=== PATIENT | female | born 1980 | race African-American/Black ===

== ENCOUNTER 2020-04-18 14:09 | Outpatient (REF) | payer BC, SELFPAY ==
[2020-04-19 03:58] LABS: HBS Num1 2.45 mIU/mL (0-7.99); ~Hepatitis B Surface Antibody NONREACTIVE (Nonreactive)
[2020-04-19 17:16] LABS: Rubella IgG Antibody 1.04 Index
[2020-04-20 18:52] LABS: TS Negative Control Passed; TS Panel A 0; TS Panel B 0; TS Positive Control Passed; TSpotTB Negative (SeeBelow)
== END 2020-04-18 14:10 | disposition home or self-care (01) ==
LOC: HO.LNP 14:09
PROVIDERS: Visit Provider Internal Medicine
DX: Z02.1 Encounter for pre-employment examination (principal)
CPT/HCPCS: 86481; 86706; 86735; 86762; 86765; 86787

== ENCOUNTER 2020-09-13 09:22 | Outpatient (REF) | payer BC, OTHER, SELFPAY ==
[2020-09-13 11:39] LABS: Alanine Aminotransferase 17 U/L (0-31); Albumin Level 4.5 g/dL (3.5-5.0); Alkaline Phosphatase 70 U/L (39-117); Anion Gap 13 (12-20); Aspartate Amino Transferase 21 U/L (5-31); Bilirubin Total 0.4 mg/dL (0.0-1.0); Blood Urea Nitrogen 12 mg/dL (9-16); Calcium 9.7 mg/dL (8.4-10.2); Carbon Dioxide 25 mmol/L (22-29); Chloride 106 mmol/L (96-108); Cholesterol 179 mg/dL; Estimated Glomerular Filt Rate > 60; Glucose Random 98 mg/dL (60-115); HDL Cholesterol 44 mg/dL; LDL Cholesterol Calculated 104 mg/dl; Potassium 4.4 mmol/L (3.3-5.1); Sodium 140 mmol/L (135-145); Total Protein 7.4 g/dL (6.5-8.0); Triglycerides 157 mg/dL
== END 2020-09-13 09:23 | disposition home or self-care (01) ==
LOC: HO.HMGCLDS 09:22
PROVIDERS: PCP Nurse Practitioner Adult Health; Visit Provider Nurse Practitioner Adult Health
DX: E78.00 Pure hypercholesterolemia, unspecified (principal)
CPT/HCPCS: 36415; 80053; 80061

== ENCOUNTER 2020-12-24 12:11 | Outpatient (REF) | payer OTHER, SELFPAY ==
--- NOTE | ~2020-12-24 | XR_ITS ---
EXAMINATION: XR CHEST CLINICAL INFORMATION: Chest pain COMPARISON: None TECHNIQUE: 2 views of the chest were obtained. FINDINGS: No significant abnormality is noted involving the heart, lungs, mediastinum, bony thorax or soft tissues. XR/XR chest 2V IMPRESSION: Unremarkable examination.
[2020-12-24 13:46] LABS: MANUAL DIFF FLAG NO
[2020-12-24 13:50] LABS: Basophils Absolute Auto 0.1 X10*3/uL (0.0-0.2); Basophils Percent Auto 0.6 % (0-2); Eosinophils Absolute Auto 0.1 X10*3/uL (0.0-0.4); Eosinophils Percent Auto 0.9 % (0-4); Hematocrit 42.5 % (37-47); Hemoglobin 13.4 g/dl (12.0-16.0); Imm Gran Abs Auto 0.05 X10*3/uL (0.00-0.03); Imm Gran Pct Auto 0.4 % (0.0-0.4); Lymphocytes Absolute Auto 2.4 X10*3/uL (1.2-4.9); Lymphocytes Percent Auto 18.4 % (20-40); Mean Corpuscular HGB Conc 31.5 g/dl (31.0-35.0); Mean Corpuscular Hemoglobin 25.1 pg (27.0-33.0); Mean Corpuscular Volume 79.6 fL (80-98); Mean Platelet Volume 12.1 fL (9.4-12.3); Monocytes Absolute Auto 0.6 X10*3/uL (0.1-1.2); Monocytes Percent Auto 4.3 % (2-11); Neutrophils Absolute Auto 9.7 X10*3/uL (2.0-8.3); Neutrophils Percent Auto 75.4 % (45-73); Platelet Count 233 X10*3/uL (160-400); Red Blood Count 5.34 X10*6/uL (4.20-5.50); Red Cell Distribution Width 13.7 % (11.0-16.0); White Blood Count 12.9 X10*3/uL (4.8-10.8)
[2020-12-24 14:05] LABS: D Dimer < 200 NG/ML
[2020-12-24 14:19] LABS: Alanine Aminotransferase 22 U/L (0-31); Albumin Level 4.5 g/dL (3.5-5.0); Alkaline Phosphatase 70 U/L (39-117); Anion Gap 14 (12-20); Aspartate Amino Transferase 20 U/L (5-31); Bilirubin Total 0.3 mg/dL (0.0-1.0); Blood Urea Nitrogen 11 mg/dL (9-16); Calcium 9.5 mg/dL (8.4-10.2); Carbon Dioxide 25 mmol/L (22-29); Chloride 104 mmol/L (96-108); Estimated Glomerular Filt Rate > 60; Glucose Random 86 mg/dL (60-115); Potassium 4.3 mmol/L (3.3-5.1); Sodium 139 mmol/L (135-145); Total Protein 7.5 g/dL (6.5-8.0)
== END 2020-12-24 12:12 | disposition home or self-care (01) ==
LOC: HO.HMGCX 12:11
PROVIDERS: Visit Provider Nurse Practitioner Family
DX: R07.89 Other chest pain (principal)
CPT/HCPCS: 36415; 71046; 80053; 85025; 85379

== ENCOUNTER 2021-02-04 16:42 | Outpatient (REF) | payer OTHER, SELFPAY ==
[2021-02-04 18:13] LABS: Influenza A PCR NEGATIVE (Negative); Influenza B PCR NEGATIVE (Negative); Resp Syncy Virus RNA Qual PCR NEGATIVE (Negative); SARS COV2 PCR INHOUSE NEGATIVE (Negative)
== END 2021-02-04 16:43 | disposition home or self-care (01) ==
LOC: HO.LNP 16:42
PROVIDERS: Visit Provider Nurse Practitioner Family
DX: Z20.822 Contact with and (suspected) exposure to COVID-19 (principal)
CPT/HCPCS: 0241U

== ENCOUNTER 2021-07-04 14:16 | Outpatient (REF) | payer BC, OTHER, SELFPAY ==
[2021-07-04 16:53] LABS: Blood Urea Nitrogen 13 mg/dL (9-16); Estimated Glomerular Filt Rate > 60
== END 2021-07-04 14:17 | disposition home or self-care (01) ==
LOC: HO.HMGCLDS 14:16
PROVIDERS: Visit Provider Psychiatry & Neurology Neurology
DX: G93.2 Benign intracranial hypertension (principal)
CPT/HCPCS: 36415; 82565; 84520

== ENCOUNTER 2021-07-16 19:01 | Outpatient (REF) | payer BC, OTHER, SELFPAY ==
--- NOTE | ~2021-07-16 | MR_ITS ---
EXAMINATION: MR BRAIN WITHOUT AND WITH CONTRAST CLINICAL INFORMATION: 41-year-old with idiopathic intracranial hypertension. COMPARISON: None TECHNIQUE: Multiplanar, multisequence MRI of the brain was obtained before and after the intravenous administration of 10 mL Gadavist. FINDINGS: BRAIN VOLUME: Within normal limits. STRUCTURAL: Partially empty sella noted. No sphenoid wing encephaloceles are identified. No particularly prominent arachnoid pits are seen. No tonsillar ectopia at the foramen magnum. BRAIN AND MENINGES: DWI sequence demonstrates no restricted diffusion. Specifically there is no evidence for acute or subacute cerebral ischemia. There is a 7 mm nonspecific ovoid zone of FLAIR/T2 signal hyperintensity in the mesial right temporal lobe subcortical white matter adjacent to the tip of the temporal horn of the right lateral ventricle with no abnormal enhancement, which is slightly T1 hypointense. There is a 2 mm focus of nonspecific T2 hyperintensity in the left elena with no abnormal enhancement. Remainder of the brain is normal in morphology and signal intensity. There is no abnormal leptomeningeal enhancement. Specifically, no pachymeningeal enhancement/thickening is seen. No intracranial mass lesions, abnormal enhancement, extra-axial fluid collection, space-occupying process or mass effect is identified. Gradient refocused imaging demonstrates no evidence for hemosiderin staining or abnormal mineral deposition. VENTRICLES AND SUBARACHNOID SPACES: The ventricular system and subarachnoid spaces are within normal limits without hydrocephalus. ORBITAL STRUCTURES: CSF fluid signal in the optic nerve sheaths is noted bilaterally but not abnormally increased in volume. No flattening of the posterior scleral margins or protrusions of the optic nerves discs within the limitations of the study. VASCULAR: Signal voids are noted in the visualized major intracranial vessels. OSSEOUS STRUCTURES, SINUSES/MASTOIDS, EXTRACRANIAL SOFT TISSUES: Unremarkable. MR/MR head/brain wo/w con IMPRESSION: 1. No convincing evidence for idiopathic intracranial hypertension. Incidental partially empty sella noted. 2. Small nonspecific T2 hyperintense lesion in the mesial right anterior temporal lobe predominately within the subcortical and juxtacortical white matter and a small nonspecific T2 hyperintense lesion in the left elena with no abnormal enhancement. Etiology unclear. Followup as per clinical indications.
== END 2021-07-16 19:02 | disposition home or self-care (01) ==
LOC: HO.MRI 19:01
PROVIDERS: Visit Provider Psychiatry & Neurology Neurology
DX: G93.2 Benign intracranial hypertension (principal)
CPT/HCPCS: 70553; A9585

== ENCOUNTER 2021-08-04 08:44 | Outpatient (REF) | payer BC, SELFPAY ==
[2021-08-04 09:47] LABS: Binax Internal Control QC Valid; Binax Now Covid-19 Ag Negative (Negative); Binax Performed by: HO.TORG
== END 2021-08-04 08:45 | disposition home or self-care (01) ==
LOC: HO.HMGCLDS 08:44
PROVIDERS: PCP Nurse Practitioner Adult Health; Visit Provider Nurse Practitioner Family
DX: Z13.89 Encounter for screening for other disorder (principal)

== ENCOUNTER 2021-08-15 09:37 | Day surgery (SDC) | payer BC, OTHER, SELFPAY ==
[2021-08-15] VITALS (7 sets, daily range): BP systolic 125–144; BP diastolic 70–81; PULSE 64–88; RESP 16; TEMP 36.8–36.9; O2SAT 95–98
--- NOTE | ~2021-08-15 | FL_ITS ---
EXAMINATION: XR LUMBAR PUNCTURE CLINICAL INFORMATION: Idiopathic intracranial hypertension. COMPARISON: None. TECHNIQUE: Following explaining fluoroscopy-guided lumbar puncture procedure, benefits and risks, a written consent was obtained. Patient was placed prone on fluoroscopy table and low back area was cleaned and draped in the usual sterile manner. 1% lidocaine was injected at the skin overlying the L4-L5 disc level. A 22-gauge spinal needle was then advanced intrathecally at the L4-L5 disc level. After removing the stylet and observing CSF fluid, patient was quickly placed in the left lateral decubitus view and opening CSF pressure was obtained. Subsequently, fluid was collected in 4 test tubes. The connecting cannula was removed and stylet was reintroduced into the needle and the entire needle was withdrawn. Complete hemostasis was achieved at the puncture site with sterile Band-Aid applied postprocedure. Patient tolerated the procedure extremely well. FINDINGS: On visualized images of lumbar spine, there is maintained lumbar vertebral heights and alignment and the disc heights are normal. The opening CSF pressure measured 26 cm of water at the L4-L5 disc level. 14 mL of CSF was collected in 4 test tubes. Initially the fluid was hemorrhagic and there was pinkish CSF fluid in initial tube but subsequently clear. FLUOROSCOPY TIME: 1.4 minutes. DOSE AREA PRODUCT: 16.298 uGy-m2 (microgray-meter squared). FL/FL guided lumbar puncture LP IMPRESSION: Successful ultrasound-guided lumbar puncture performed. The CSF initially was hemorrhagic, likely traumatic. This cleared on subsequent collection of CSF. There was elevated CSF pressures.
[2021-08-15 10:00] LABS: MANUAL DIFF FLAG NO
[2021-08-15 10:01] LABS: Basophils Percent Auto 0.4 % (0-2); Eosinophils Absolute Auto 0.2 X10*3/uL (0.0-0.4); Eosinophils Percent Auto 1.5 % (0-4); Hematocrit 41.9 % (37.0-47.0); Hemoglobin 13.2 g/dl (12.0-16.0); Imm Gran Abs Auto 0.04 X10*3/uL (0.00-0.03); Imm Gran Pct Auto 0.4 % (0.0-0.4); Lymphocytes Percent Auto 18.6 % (20-40); Mean Corpuscular HGB Conc 31.5 g/dl (31.0-35.0); Mean Corpuscular Hemoglobin 25.3 pg (27.0-33.0); Mean Corpuscular Volume 80.3 fL (80.0-98.0); Mean Platelet Volume 11.2 fL (9.4-12.3); Monocytes Absolute Auto 0.5 X10*3/uL (0.1-1.2); Monocytes Percent Auto 5.1 % (2-11); Neutrophils Absolute Auto 7.8 x10*3/uL (2.0-8.3); Platelet Count 203 X10*3/uL (160-400); Red Blood Count 5.22 X10*6/uL (4.20-5.50); Red Cell Distribution Width 13.6 % (11.0-16.0); White Blood Count 10.6 X10*3/uL (4.8-10.8)
[2021-08-15 10:07] LABS: INTERNATIONAL NORM RATIO 0.9 (0.9-1.1); Prothrombin Time 10.6 SEC (9.9-13.0)
[2021-08-15 10:10] LABS: Partial Thromboplastin Time 34.4 SEC (24.1-38.0)
[2021-08-15 10:36] LABS: UPreg QC Valid YES; Urine Pregnancy NEGATIVE (NEGATIVE)
[2021-08-15 12:56] LABS: CSF Appearance Clear, Colorless; CSF Tube # 3
[2021-08-15 13:07] LABS: Glucose CSF 66 mg/dL; Total Protein CSF 53.4 mg/dL (15-45)
[2021-08-15 13:16] LABS: CSF Monos 14 %; Lymphocytes CSF 75 %; Neutrophils CSF 11 %
[2021-08-15 13:17] LABS: Appearance CSF CLEAR; Color CSF COLORLESS; Red Blood Cell CSF 126 MM*3; White Blood Cell CSF 2 MM*3
[2021-08-15 13:20] LABS: CSF Tube # 1
== END 2021-08-15 15:35 | disposition home or self-care (01) ==
PROVIDERS: Psychiatry & Neurology Neurology; Visit Provider Radiology Diagnostic Radiology
PROC: 009U3ZZ Drainage of Spinal Canal, Percutaneous Approach (ICD-10-PCS; CPT 62270; principal; 2021-08-15 11:00)
DX: G93.2 Benign intracranial hypertension (principal); F41.8 Other specified anxiety disorders; G43.909 Migraine, unspecified, not intractable, without status migrainosus; R25.1 Tremor, unspecified; E66.9 Obesity, unspecified; Z79.899 Other long term (current) drug therapy
CPT/HCPCS: 36415; 62328; 81025; 82945; 84157; 85025; 85610; 85730; 87015; 87070; 87205; 89051

== ENCOUNTER 2021-11-25 14:11 | Outpatient (REF) | payer BC, SELFPAY ==
[2021-11-26 13:56] LABS: Lyme Abs Screen <0.90 index
[2021-11-27 11:37] LABS: IgA 196 mg/dL (47-310); IgG 943 mg/dL (600-1640); IgM 53 mg/dL (50-300)
== END 2021-11-25 14:12 | disposition home or self-care (01) ==
LOC: HO.HMGCLDS 14:11
PROVIDERS: PCP Nurse Practitioner Adult Health; Visit Provider Psychiatry & Neurology Neurology
DX: G93.2 Benign intracranial hypertension (principal)
CPT/HCPCS: 36415; 82784; 86334; 86617; 86618

== ENCOUNTER 2022-06-09 07:52 | Outpatient (REF) | payer BC, OTHER, SELFPAY ==
[2022-06-09 11:31] LABS: MANUAL DIFF FLAG NO
[2022-06-09 11:37] LABS: Appearance Urine Clear; Color Urine Yellow; Glucose Urine UA Negative (Negative); Leukocyte Esterase Urine Negative (Negative); Nitrite Urine Negative (Negative); PH 6.5 (5.0-9.0); Urine Blood Negative (Negative); Urine Ketones Negative (Negative); Urine Protein Negative (Neg-Trace)
[2022-06-09 11:55] LABS: Basophils Absolute Auto 0.1 X10*3/uL (0.0-0.2); Basophils Percent Auto 0.7 % (0-2); Eosinophils Absolute Auto 0.1 X10*3/uL (0.0-0.4); Eosinophils Percent Auto 1.5 % (0-4); Hematocrit 40.6 % (37.0-47.0); Hemoglobin 12.6 g/dl (12.0-16.0); Imm Gran Abs Auto 0.03 X10*3/uL (0.00-0.03); Imm Gran Pct Auto 0.3 % (0.0-0.4); Lymphocytes Absolute Auto 1.9 X10*3/uL (1.2-4.9); Lymphocytes Percent Auto 20.2 % (20-40); Mean Corpuscular Volume 80.4 fL (80.0-98.0); Mean Platelet Volume 11.8 fL (9.4-12.3); Monocytes Absolute Auto 0.4 X10*3/uL (0.1-1.2); Monocytes Percent Auto 4.5 % (2-11); Neutrophils Absolute Auto 6.7 x10*3/uL (2.0-8.3); Neutrophils Percent Auto 72.8 % (45-73); Platelet Count 220 X10*3/uL (160-400); Red Blood Count 5.05 X10*6/uL (4.20-5.50); Red Cell Distribution Width 13.9 % (11.0-16.0); White Blood Count 9.2 X10*3/uL (4.8-10.8)
[2022-06-09 12:37] LABS: Alanine Aminotransferase 18 U/L (0-31); Albumin Level 4.1 g/dL (3.5-5.0); Alkaline Phosphatase 59 U/L (39-117); Anion Gap 13 (12-20); Aspartate Amino Transferase 22 U/L (5-31); Bilirubin Total 0.3 mg/dL (0.0-1.0); Blood Urea Nitrogen 14 mg/dL (9-16); Calcium 8.9 mg/dL (8.4-10.2); Carbon Dioxide 23 mmol/L (22-29); Chloride 108 mmol/L (96-108); Cholesterol 207 mg/dL; Estimated Glomerular Filt Rate > 60; Glucose Random 92 mg/dL (60-115); HDL Cholesterol 44 mg/dL; LDL Cholesterol Calculated 115 mg/dl; Potassium 4.3 mmol/L (3.3-5.1); Sodium 140 mmol/L (135-145); Total Protein 6.6 g/dL (6.5-8.0); Triglycerides 243 mg/dL
[2022-06-10 05:25] LABS: ~HepC Num1 0.07 S/CO (0.00-0.79); ~Hepatitis C Antibody Nonreactive (Nonreactive)
== END 2022-06-09 07:53 | disposition home or self-care (01) ==
LOC: HO.HMGCLDS 07:52
PROVIDERS: PCP Nurse Practitioner Primary Care; Visit Provider Nurse Practitioner Primary Care
DX: Z00.00 Encounter for general adult medical examination without abnormal findings (principal); E78.2 Mixed hyperlipidemia; Z11.59 Encounter for screening for other viral diseases
CPT/HCPCS: 36415; 80053; 80061; 81003; 85025; 86803

== ENCOUNTER 2022-12-01 11:13 | Outpatient (AMB) | payer BC, OTHER, SELFPAY ==
--- OUTSIDE RECORDS SUMMARY | 2022-12-01 11:14 | XMS_ITS | Patient Health Record ---
Author Name Unknown Organization [facility] Address [address] [place] [address] Care Team Providers Care Mud Tank Operator Name Role Phone TOM MCCORMICK Primary Care Provider Tom Mccormick Unavailable [phone] AMGALIE RUBIO Unavailable [phone] PARVIN GUNTER Unavailable [phone] ALLERGIES Allergen (clinical drug ingredient) Drug/Non Drug Allergy documented on EMR Reaction Allergy Type Onset Date Status Shellfish (FN) Shellfish (uncoded) Unknown Allergy Active RESULTS Component Value Reference Range Notes CC PRIMARY Reviewed date:06/11/2022 01:34:48 PM Interpretation: Performing Lab: Notes/Report: REASON FOR REFERRAL Reason PT leg gluteal pain/ soreness. will get xray. please evaluate and treat Diagnosis 1 Left leg pain (M79.6 05) Referral Organization [facility] Referring Provider First Name PARVIN Referring Provider Last Name LYRIC Referring Provider Speciality Nurse Prac titioner Referred Provider Specialty Physical The rapist General Notes Nelia Astudillo 10:07:33 AM > printed for patient she said she will bring referral next to her job Referral Priority Routine MEDICATIONS Medication SIG (Take, Route, Frequency, Duration) Notes Start Date End Date Status Multivitamin Adult - Orally Active Vitamin D 2000 UNIT 1 tablet Orally Once a day Active Vitamin C 500 MG as directed Orally Active Garlic - as directed Orally A ctive Topamax 50 MG 1 tablet Orally twice a day Active Simvastatin 20 MG TAKE ONE TABLET IN THE EVENING BY MOUTH ONCE A DAY FOR 90 DAYS for 90 Active Biotin 10 MG 1 tablet Orally Once a day for 30 day(s) Active Echinacea 400 MG as directed Orally Active Miracle-D 24 Hour DAILY Ac tive LORazepam 0.5 MG 1 tablet as needed Oral once daily for 30 days TAKE ONE TABLET EVERY DAY NECESSARY 03/29/2009 Not-Taking Vitamin B Complex - as directed Orally Active Famotidine 40 MG 1 tablet Orally Once a day for 90 days 09/19/2015 Not-Taking CoQ-10 50 MG 1 capsule with a meal Orally Once a day Not-Taking Loratadine 10 MG 1 tablet Orally Once a day Not-Taking Apple Cider Vinegar 500 MG Orally Not-Taking ProAir HFA 108 (90 Base) MCG/ACT 1-2 puffs Inhalation every 4-6 hrs PRN for 30 days INHALE 1 TO 2 PUFFS EVERY 4 TO 6 HOURS NEEDED. 01/19/2012 Not-Taking SUMAtriptan Succinate 100 MG TAKE AT ONSET OF HEADACHE MAY REPEAT IN 2 HOURS NO MORE THAN 2 TABLETS IN 24 HOURS for 30 Active Ashwagandha 500 MG as directed Orally Not-Taking LORazepam 0.5 MG 1 tablet Orally PRN for anxiety for 30 days PRN 03/24/2022 Active Sertraline HCl 50 MG 1 1/2 tablet Orally Once a day Active diphenhydrAMINE HCl 50 MG as directed Orally every 6 hrs prn for 30 days 09/19/2015 Not-Taking Albuterol Sulfate 108 (90 Base) MCG/ACT 2 PUFFS Inhalation every 4-6 hrs for 30 days PRN 12/25/2011 Active traZODone HCl 100 MG 1 to 1 1/2 tablet at bedtime Orally at bedtime for 90 days 09/19/2015 Not-Taking Fexofenadine HCl 180 MG 1 tablet as needed Orally Once a day for 90 days 09/19/2015 Not-Taking EpiPen 2-David 0.3 MG/0.3ML use one pen for anaphylactic reaction Injection once, may repeat in 10 min if needed for 30 days USE DIRECTED AND CALL 911 FOR ANAPHYLAXIS REACTION 01/19/2012 Active Cranberry 425 MG Orally Act staci Probiotic - Orally Active SOCIAL HISTORY Tobacco Use: Social History Observation Description Date Details (start date - stop date) Former Smoker NA - NA Sex Assigned At : Social History Observation Description Sex Assigned At Unknown Tobacco Use/Smoking Question Answer Notes Are you a former smoker How long has it been since you last smoked? 1-5 years Additional Findings: Tobacco Non-User Current no n-smoker Alcohol Screen (Audit-C) Question Answer Notes Did you have a drink contain ing alcohol in the past year? Yes How often did you have a dri nk containing alcohol in the past year? Monthly or less (1 point) How many drinks did you have on a typical day when you were drinking in the past year? 1 or 2 drinks (0 point) How often did you have 6 or more drinks on one occasion in the past year? Less than monthly (1 point) Points 2 Tobacco use other than smoking: Question Answer Notes Are you an other tobacco user? No PROBLEMS Problem Type ICD Code Onset Dates Problem Status W/U Status Risk SNOMED Code Notes Problem Mixed hyperlipidemia (E78.2) Active confirmed Mixed hyperlipidemia (673375107) Problem Anxiety disorder, unspecified (F41.9) Active confirmed Anxiety disorde r (000524482) amily stressors continue. continue sertraline, advised couceling. Problem Encounter for general adult medical examination without abnormal findings (Z00.00) Active confirmed Adult health examination (623029235) Problem Asthma (J45.909) Active confirmed 28073 7001 mild intermittent, no recent flair. continue to use otc antihistamine to help nasal sx. stressed need to have covid vaccine at the pharmacy. Problem Seasonal allergies (J30.2) Active confirmed [id number] Problem Environmental allergies (Z91.09) Active confirmed Environmental allergy (076272133) seafood allergies Has not needed epipen but needs a new rx as her's Problem Migraine (G43.909) Active confirmed Migraine (28094112) follows with Dr Silverman Problem Obesity (BMI 30-39.9) (E66.9) Active confirmed [id number] Problem Pseudotumor cerebri (G93.2) Active confirmed 40167021 continues to avoid neurology follow up. stressed need to follow up and to call for appointment Problem Pure hypercholesterol emia (E78.00) 1904 Active confirmed [id number] due for fasting lab- order given . is taking med daily Continue to work on improving diet Problem Hypercholesterol emia (E78.00) Active confirmed Hypercholester olem ia (61639528) Problem Amenorrhea (N91.2) Active confirmed Amenorrhea (15522242) VITAL SIGNS Heart Rate 90 /min 06/12/2022 Temperature 98.2 degrees Fahrenheit 06/12/2022 Oximetry 96 % 06/12/2022 Blood pressure diastolic 76 mm Hg 06/12/2022 Height 62.9920 in 06/12/2022 Blood pressure systolic 138 mm Hg 06/12/2022 Weight 197 lbs 06/12/2022 BMI 34.90 kg/m2 06/12/2022 PLAN OF TREATMENT Pending Test Test Name Order Date MAMMOGRAM, SCREENING 02/03/2018 MAMMOGRAM, SCREENING 08/25/2018 MAMMOGRAM, SCREENING 01/19/2019 MAMMOGRAM, SCREENING 03/13/2022 MAMMOGRAM, SCREENING 09/05/2020 CBC WITH AUTO DIFF 03/13/2022 COMPREHENSIVE METABOLIC PANEL 03/13/2022 HEPATITIS C VIRUS SCREEN 03/13/2022 LIPID PROFILE 03/13/2022 URINALYSIS 03/13/2022 xray hip left 06/12/2022 LIPID PROFILE 01/19/2019 Future Test Test Name Order Date COMPREHENSIVE METABOLIC PANEL 01/19/2019 Insurance Providers Payer Name Payer Address Payer Phone Subscriber Number Group Number Insured Name Patient Relationship to Insured Coverage Start Date Coverage End Date [employer] and [facility] [address] [place] [address] [phone] [id number] Yadira Yoo Self - patient is the insured [facility] [employer] Plan, [place] [address] [address] [place] [address] [id number] Yadira Yoo Self - patient is the insured MEDICAL (GENERAL) HISTORY Medical History History ICD Code , History of migraine headac hes , Obstructive Sleep Apnea , Snoring (Symptom) , Urinary Tract Infection Surgical History Surgery Date(Month/Year) Tonsillectomy 09/06/2015
--- NOTE | 2022-12-04 17:07 | MHC.OFFWIV ---
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 Patient has been having sniffles and running nose since yesterday. Minimal fatigue Physical Exam HEENT Head: Yes normal to inspection Eyes General: appearance normal, both eyes and all related structures Neck Neck: Yes normal visual inspection Resp Effort & Inspection: normal respiratory effort Assessment & Plan Assessment & Plan (1) Upper respiratory tract infection: Code(s): J06.9 - Acute upper respiratory infection, unspecified Qualifiers: URI type: unspecified viral URI Qualified Code(s): J06.9 - Acute upper respiratory infection, unspecified Plan: COVID testing was requested. It was negative. No antibiotics needed. Patient was reassured Orders: Orders BinaxNOW Covid-19 Ag 12/01/22 J06.9 - Acute upper respiratory infection, unspecified Coding Level of Care Code Est Pt Level 3 (65299) Diagnoses Viral upper respiratory tract infection J06.9 URI type: unspecified viral URI
== END 2022-12-01 13:01 | disposition home or self-care (01) ==
PROVIDERS: PCP Nurse Practitioner Primary Care; Visit Provider Internal Medicine
DX: J06.9 Acute upper respiratory infection, unspecified (principal)
CPT/HCPCS: 99213

== ENCOUNTER 2022-12-01 11:59 | Outpatient (REF) | payer BC, OTHER, SELFPAY ==
[2022-12-01 12:19] LABS: Binax Now Covid-19 Ag Negative (Negative); Binax Performed by: PAULP
[2022-12-01 12:20] LABS: Binax Internal Control QC Valid
== END 2022-12-01 12:00 | disposition home or self-care (01) ==
LOC: HO.HMGCLDS 11:59
PROVIDERS: Visit Provider Internal Medicine
DX: J06.9 Acute upper respiratory infection, unspecified (principal); Z20.822 Contact with and (suspected) exposure to COVID-19
CPT/HCPCS: 87811; C9803

== ENCOUNTER 2023-01-12 07:23 | Outpatient (AMB) | payer BC, SELFPAY ==
--- NOTE | 2023-01-12 07:07 | MHC.PC.OV ---
Intake Visit Reasons: Anxiety follow-up Allergies shellfish derived Allergy (Verified 01/12/23 07:36) Facial Swelling Medication List - Last Reconciled 01/12/23 by JAYASHREE McphersonP- albuterol sulfate 90 mcg/actuation (ProAir HFA) inhalation ascorbate calcium (vitamin C) 500 mg PO DAILY azithromycin 250 mg PO ONCE 5 days biotin 2,500 mcg PO DAILY cetirizine 10 mg PO DAILY PRN 90 days cranberry 1,000 mg PO DAILY cyclobenzaprine 10 mg PO BEDTIME PRN 10 days diphenhydramine HCl (Benadryl) 50 mg PO BEDTIME echinacea 500 mg PO DAILY ferrous sulfate (Georgi-Time) 325 mg PO Q OTHER DAY fexofenadine (Miracle Allergy) 180 mg PO DAILY garlic 500 mg PO DAILY lactobacillus combo no.11 (Probiotic) 1 cap PO DAILY lorazepam 0.5 mg PO DAILY PRN multivitamin 1 tab PO DAILY prednisone 50 mg PO DAILY 5 days sertraline 150 mg PO DAILY simvastatin 20 mg PO QPM topiramate 25 mg PO BID HPI Anxiety follow-up HPI Details Anxiety/depression: Pt is currently taking sertraline 150mg. She reports doing well on this med. Denies any SI and HI. Pt is requesting a refill of lorazepam 0.5mg, will send. Educated pt on risk of addiction, this is not a long-term med. Pt understands that they can not drive while taking this med, share this med, and to only take as prescribed. Review of Systems Const Reports as per HPI Physical exam (Primary Care) Const General: cooperative Orientation/consciousness: patient oriented x3 Neuro General: patient oriented x3 Psych Appearance: grossly normal Mental Status: mental status grossly normal Speech and movement: Clear speech present Affect: normal affect Attitude: cooperative Thought process: Normal thought process present Thought content: Normal thought content present Insight: Good insight present (Psych) Judgement: Good judgement present (Psych) Telehealth Telehealth Location of provider rendering services: practice address Location of patient: address on file Patient Identification confirmed using: Name, : Yes Telehealth method: video Patient verbally consented to treatment: Yes Patient verbally consented to billing insurance company: Yes Patient informed of any privacy concerns related to visit: Yes Minutes spent on Phone/Video with Pt.: 10 Assessment and Plan Assessment & Plan (1) Anxiety and depression: Code(s): F41.9 - Anxiety disorder, unspecified; F32.A - Depression, unspecified Plan: Sertraline and lorazepam refilled Plan The patient agreed to the use of a medical review specialist for this encounter. Scribed for Michael Pantoja [facility]- by Ninoska Navarrete medical review specialist, on 01/12/2023 at 07:10 EST Orders: Orders Complete Blood Count Auto Diff Today F32.A - Depression, unspecified, F41.9 - Anxiety disorder, unspecified UA CC w/rflx Micro + Cult Today F32.A - Depression, unspecified, F41.9 - Anxiety disorder, unspecified Lipid Panel Today F32.A - Depression, unspecified, F41.9 - Anxiety disorder, unspecified Comprehensive [place]. Panel Fast Today F32.A - Depression, unspecified, F41.9 - Anxiety disorder, unspecified TSH reflex Free T4 Today F32.A - Depression, unspecified, F41.9 - Anxiety disorder, unspecified Medications: Changed From lorazepam 0.5 mg PO DAILY PRN To lorazepam 0.5 mg PO DAILY 30 days PRN 30 tabs 0RF anxiety From sertraline 150 mg PO DAILY To sertraline 150 mg (1.5 x 100 mg) PO DAILY 90 days 135 tabs 1RF Coding Level of Care Code Tele Est Pt Level 3 (91568) Diagnoses Anxiety and depression F41.9; F32.A
== END 2023-01-12 12:28 | disposition home or self-care (01) ==
PROVIDERS: PCP Nurse Practitioner Primary Care; Visit Provider Nurse Practitioner Family
DX: F41.9 Anxiety disorder, unspecified (principal); F32.A Depression, unspecified
CPT/HCPCS: 99213

== ENCOUNTER 2023-01-29 15:50 | Outpatient (AMB) | payer BC, SELFPAY ==
[2023-01-29 16:02] VITALS: BP 140/90; PULSE 84; TEMP 36.8; O2SAT 97; BMI 35.8
--- NOTE | 2023-01-29 16:02 | AM.OFFWIN_ITS ---
Intake Vital Signs 01/29/23 16:02 Height 5 ft 4 in Weight 208 lb 6 oz BMI 35.8 BP 140/90 H Blood Pressure Location Rt brachial Position Sitting Pulse 84 Pulse Source Pulse Oximeter Temp 98.2 F Temp Source Oral Pulse Oximetry (%) 97 Oxygen Delivery Method Room Air Intake Visit Reasons: sore throat, body aches Intake Note: pt is here for c/o sore throat, body aches Patient Tobacco Use Status: Former Tobacco user Allergies shellfish derived Allergy (Verified 01/29/23 16:02) Facial Swelling Do you need a note to return to daycare/school/sports/work: Yes HPI HPI Comments History of Present Illness Details This is a 42-year-old who presents to the office today for sick visit. Patient complaining of sinus pressure, sinus congestion, rhinorrhea, low-grade fevers and chills, sore throat, and bilateral otalgia x3 days. 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 [facility] Medical History (Updated 01/12/23 @ 07:49 by ANTWAN Mcpherson-LEILA) Idiopathic intracranial hypertension Social History Patient Tobacco Use Status: Former Tobacco user Review of Systems Const All systems reviewed & are unremarkable except as noted in HPI and below Reports no additional complaints Eyes Reports no additional complaints ENT Reports no additional complaints Card Reports no additional complaints Resp Reports no additional complaints GI Reports no additional complaints Reports no additional complaints Musc Reports no additional complaints Skin/Breast Reports system reviewed and no additional complaints, except as documented Neuro Reports no additional complaints Psych Reports no additional complaints Endo Reports no additional complaints Von/Lymph Reports no additional complaints Aller/Immun Reports no additional complaints Physical Exam Vital Signs: BMI result Body Mass Index 35.8 Const Other: Vital signs reviewed. Constitutional: Non-toxic appearing. No acute distress. Well-developed and well-nourished. HEENT: Normocephalic and atraumatic. Mild erythema of bilateral external auditory canals, no evidence of acute otitis media over acute otitis externa. Moist mucous membranes. Mild posterior pharyngeal erythema but no exudates. Skin: Warm and dry. No rashes or lesions noted. Neck: Full and painless range of motion. No cervical lymphadenopathy. Cardio: Regular rate and rhythm. No murmurs, gallops, or rubs. No lower extremity edema. No JVD. Pulmonary: No respiratory distress. No accessory muscle usage. Clear to auscultation bilaterally without wheezing, crackles, or rhonchi. Gastrointestinal: Soft, nontender, and nondistended in all 4 quadrants. Normoactive bowel sounds in all 4 quadrants. Genitourinary: No CVA tenderness. Musculoskeletal: Normal range of motion in joints throughout the body. No deformity or other signs of injury. Neuro: Alert and oriented x4. Cranial nerves 2-12 grossly intact. No focal deficits appreciated. Psych: Normal mood and affect. Assessment & Plan Assessment & Plan (1) Acute rhinosinusitis: Code(s): J01.90 - Acute sinusitis, unspecified Plan This is a 42-year-old female presenting to the office complaining of viral URI symptoms. Patient's history and physical most consistent with a viral upper respiratory tract infection. I explained to the patient that antibiotic therapy is likely not necessary as this is likely self-limiting illness. However, patient is requesting antibiotic therapy sinus infection. I explained the risks of antibiotic therapy including increased risk of resistance in the future as well as uncomfortable side effects such as GI upset, nausea/vomiting/diarrhea, etc. Patient understands the risks but would like to be treated with antibiotics for a sinus infection. Sent a prescription for p.o. amoxicillin/clavulanate 875-125 mg twice daily x7 days, I have encouraged patient to give her symptoms a little bit more time to improve prior to initiation of antibiotic therapy. Rapid strep test is negative. COVID/RSV/flu sent. Patient's vital signs are stable, physical exam is otherwise benign, and patient is overall nontoxic appearing. Recommended symptomatic management including rest, increased fluids, advil/tylenol for pain/fever, salt water gargles, and over the counter throat lozenges/decongestants. Patient advised to follow up here or go to the emergency room for worsening/persistent symptoms. Patient verbalizes understanding and is in agreement the plan. Orders: Orders SARS-CoV2/FLU/RSV Today R09.89 - Other specified symptoms and signs involving the circulatory and respiratory systems Medications: New amoxicillin-pot clavulanate 875-125 mg 1 tab PO BID 14 tabs 0RF Coding Level of Care Code Est Pt Level 3 (67263) Diagnoses Acute rhinosinusitis J01.90
== END 2023-01-29 16:23 | disposition home or self-care (01) ==
PROVIDERS: PCP Nurse Practitioner Family; Visit Provider Physician Assistant Medical
DX: J01.90 Acute sinusitis, unspecified (principal)
CPT/HCPCS: 99213

== ENCOUNTER 2023-01-29 16:25 | Outpatient (REF) | payer BC, SELFPAY ==
[2023-01-30 13:42] LABS: Influenza A PCR NEGATIVE (Negative); Influenza B PCR NEGATIVE (Negative); Resp Syncy Virus RNA Qual PCR NEGATIVE (Negative); SARS COV2 PCR INHOUSE POSITIVE (Negative)
== END 2023-01-29 16:26 | disposition home or self-care (01) ==
LOC: HO.LAB 16:25
PROVIDERS: Visit Provider Physician Assistant Medical
DX: Z11.52 Encounter for screening for COVID-19 (principal); Z20.822 Contact with and (suspected) exposure to COVID-19; R09.89 Other specified symptoms and signs involving the circulatory and respiratory systems
CPT/HCPCS: 0241U

== ENCOUNTER 2023-04-20 07:35 | Outpatient (AMB) | payer BC, OTHER, SELFPAY ==
--- NOTE | 2023-04-20 07:54 | A.OFFPC_ITS ---
Vital Signs 04/20/23 08:01 04/20/23 08:42 Height 5 ft 4 in Weight 209 lb BMI 35.9 BP 128/90 H 134/86 Blood Pressure Location Lt brachial Position Sitting Pulse 80 Pulse Source Pulse Oximeter Pulse Oximetry (%) 96 Oxygen Delivery Method Room Air Intake Visit Reasons: Physical Intake Note: Pt is here today for her PE: Never had a mammogram Is last menstrual period known: Yes Last menstrual period: 04/19/23 Allergies shellfish derived Allergy (Verified 04/20/23 08:04) Facial Swelling Medication List - Last Reconciled 04/20/23 by SHERRI Mcpherson albuterol sulfate 90 mcg/actuation (ProAir HFA) inhalation ascorbate calcium (vitamin C) 500 mg PO DAILY biotin 2,500 mcg PO DAILY cetirizine 10 mg PO DAILY PRN 90 days cholecalciferol (vitamin D3) 50 mcg PO DAILY cranberry 1,000 mg PO DAILY diphenhydramine HCl (Benadryl) 50 mg PO BEDTIME echinacea 500 mg PO DAILY garlic 500 mg PO DAILY lactobacillus combo no.11 (Probiotic) 1 cap PO DAILY lorazepam 0.5 mg PO DAILY PRN 30 days multivitamin 1 tab PO DAILY sertraline 150 mg (1.5 x 100 mg) PO DAILY 90 days simvastatin 20 mg PO QPM sumatriptan succinate mg PO topiramate 50 mg PO BID valacyclovir 500 mg PO DAILY Tobacco use date assessed: 04/20/23 Dental Screening Dental Screen Date: 04/20/23 Did you have a dental visit in the last 12 months?: Yes Did you have a dental problem in the last 6 months where you did not have access to dental care?: No Was dental information given to patient?: Patient has dentist HPI Physical HPI Details Pt is here for a PE. Labs have already been ordered. 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 Due for mammo, will order. Pt appears to be due next year for a repeat colon screen. [facility] Medical History (Updated 04/20/23 @ 08:41 by SHERRI Mcpherson) Family hx of colon cancer Idiopathic intracranial hypertension Family History Maternal Grandfather Substance use disorder Maternal Grandmother Substance use disorder Social History Housing: House Patient Tobacco Use Status: Former Tobacco user e-Cigarette/Vaping Use: Never Used service: No Current occupational status: employed Cognitive needs: No Hearing needs: No Vision needs: No Female Reproductive History Menstrual Date of last menstrual period: 04/19/23 Questionnaire PHQ-9 Over the last 2 weeks, how often have you been bothered by any of the following problems? 1. Little interest or pleasure in doing things: more than half the days 2. Feeling down, depressed, or hopeless: more than half the days 3. Trouble falling or staying asleep, or sleeping too much: nearly every day 4. Feeling tired or having little energy: nearly every day 5. Poor appetite or overeating: several days 6. Feeling bad about yourself - or that you are a failure or have let yourself or your family down: more than half the days 7. Trouble concentrating on things, such as reading the newspaper or watching television: more than half the days 8. Moving or speaking so slowly that other people could have noticed. Or the opposite - being so fidgety or restless that you have been moving around a lot more than usual: not at all 9. Thoughts that you would be better off or of hurting yourself in some way: not at all Total score: 15 Depression Screening Interpretation: Positive Depression Screening Follow-up: Existing condition and Declines treatment Depression Screening Done: Yes Source: Developed by Drs. Grayson Knutson, Angela Hernandez, Mike Boateng and colleagues, with an educational jhoana from [employer] Thrive Questionnaire Date Thrive assessed: 04/20/23 I am a: Patient What is your living situation today?: I have a steady place to live Within the past 12 months, did the food you bought not last and you didn't have the money to get more?: Never true Within the past 12 months, did you worry whether your food would run out before you got money to buy more?: Never true Do you have trouble paying for medicines?: No Do you have trouble getting transportation to medical appointments?: No Do you have trouble paying your heating and electricity bill?: Yes Do you have trouble taking care of your child, family member or friend?: No Do you have trouble with day-to-day activities such as bathing, preparing meals, shopping, managing finances, etc.?: No Are you currently unemployed and looking for a job?: No Are you interested in more education?: No Currently or been in a relationship where the following occur: no concerns reported THRIVE Score: 1 AUDIT C Alcohol Use Questionnaire (AUDIT-C) 1. How often do you have a drink containing alcohol?: Monthly or less 2. How many drinks containing alcohol do you have on a typical day when you are drinking?: 1 or 2 3. How often do you have six or more drinks on one occasion?: Never Total Score: 1 Score Reviewed/Action Taken: Yes HARRY-7 AMB Questionnaire HARRY-7 Date HARRY - 7 assessed: 04/20/23 Feeling nervous, anxious, or on edge: 2 = More than half the days Not being able to stop or control worryin = More than half the days Worrying too much about different things: 2 = More than half the days Trouble relaxin = More than half the days Being so restless that it is hard to sit still: 1 = Several days Becoming easily annoyed or irritable: 3 = Nearly every day Feeling afraid as if something awful might happen: 1 = Several days Total HARRY-7 score (0-4 normal; 5-9 mild; 10-14 moderate; 15-21 severe): 13 Source: Developed by Drs. Grayson Knutson, Angela Hernandez, Mike Boateng and colleagues, with an educational jhoana from [employer] HARRY-7 Assessment Billing HARRY-7 Assessment Tool: HARRY-7 Assessment 66994 (on medication, declines therapist) ACT Questionnaire In the past 4 weeks, how much of the time did your asthma keep you from getting as much done at work, school or at home?: None of the time During the past 4 weeks, how often have you had shortness of breath?: 1-2 times a week During the past 4 weeks, how often did your asthma symptoms wake you up at night or earlier than usual in the morning?: Not at all During the past 4 weeks, how often have you had to use your rescue inhaler or nebulizer medication?: Once a week or less How would you rate your asthma control during the past 4 weeks?: Completely controlled Score: 23 Review of Systems Const Denies chills and Denies fever(s) Eyes Denies blurry vision ENT Denies vertigo, Denies dizziness and Denies sore throat Card Denies chest pain at rest, Denies chest pain with activity, Denies diaphoresis, Denies dyspnea and Denies dyspnea on exertion Resp Denies cough, Denies dyspnea, Denies dyspnea on exertion and Denies wheezing GI Denies abdominal pain, Denies melena, Denies hematochezia, Denies constipation, Denies diarrhea and Denies loose stools Denies hematuria Musc Denies numbness and Denies tingling Skin/Breast Denies lesions Neuro Denies vertigo, Denies dizziness, Denies numbness and Denies tingling Psych Denies anxiety, Denies depression, Denies homicidal ideation, Denies suicidal ideation and Denies other (substance abuse) Aller/Immun Denies wheezing Physical exam (Primary Care) Vital Signs: Last Vital Signs Pulse 80 04/20/23 08:01 BP 128/90 H 04/20/23 08:01 Pulse Ox 96 04/20/23 08:01 Oxygen Delivery Method Room Air 04/20/23 08:01 BMI result Body Mass Index 35.9 Tobacco/Smoking Status: Tobacco use Status Tobacco use date assessed 04/20/23 04/20/23 08:07 Patient Tobacco Use Status Former Tobacco user 04/20/23 07:55 e-Cigarette/Vaping Use Never Used 04/20/23 08:07 PHQ-9: PHQ-9 Score PHQ-9: Total score 15 04/20/23 08:37 Depression Screening Interpretation: Positive Depression Screening Follow-up: Existing condition and Declines treatment Thrive Assessment: Date of Thrive Assessment Date Thrive assessed 04/20/23 04/20/23 07:55 Currently or been in a relationship where the following occur: no concerns reported Const General: cooperative Nutritional Appearance: obese Orientation/consciousness: patient oriented x3 HENMT Head: Yes normal to inspection, Yes normocephalic and Yes atraumatic Ears: TM's normal bilaterally Eyes General: appearance normal, both eyes and all related structures Alignment and Position: alignment normal and position normal Neck Neck: Yes normal visual inspection and Yes no lymphadenopathy Thyroid: Thyroid normal Resp Effort & Inspection: normal respiratory effort Auscultation: clear to auscultation bilaterally Cardio Rate: regular rate Rhythm: regular rhythm Heart sounds: S1 normal heart sound present, S2 normal heart sound present and no murmurs GI Palpation (GI): Soft to palpation and nontender Auscultation: normal bowel sounds Skin Rashes: no rashes Neuro General: patient oriented x3, moves all extremities, no focal motor deficits and deep tendon reflexes 2+ bilaterally Romberg Test: Negative Psych Appearance: grossly normal Mental Status: mental status grossly normal Speech and movement: Normal speech and movement present Affect: normal affect Attitude: cooperative Thought process: Normal thought process present Thought content: Normal thought content present Insight: Good insight present (Psych) Judgement: Good judgement present (Psych) Assessment and Plan Assessment & Plan (1) Screening for breast cancer: Code(s): Z12.39 - Encounter for other screening for malignant neoplasm of breast Plan: Mammo ordered (2) Physical exam: Code(s): Z00.00 - Encounter for general adult medical examination without abnormal findings Plan: encouraged to get labs drawn Plan The patient agreed to the use of a medical laboratory specialist for this encounter. Scribed for SHERRI Montiel by Ninoska Navarrete medical laboratory specialist, on 04/20/2023 at 08:10 EST. Orders: Orders MM screening mammo BI Today Z12.31 - Encounter for screening mammogram for malignant neoplasm of breast, Z12.39 - Encounter for other screening for malignant neoplasm of breast Coding Level of Care Code Est Pt Prev Care 40-64y(50200) Diagnoses Screening for breast cancer Z12.39 Physical exam Z00.00 Additional Codes HARRY-7 Assessment Billing - HARRY-7 Assessment Tool: HARRY-7 Assessment 43530 ([id number])
[2023-04-20 08:01] VITALS: BP 128/90; PULSE 80; O2SAT 96; BMI 35.9
[2023-04-20 08:42] VITALS: BP 134/86
== END 2023-04-20 17:25 | disposition home or self-care (01) ==
PROVIDERS: PCP Nurse Practitioner Primary Care; Visit Provider Nurse Practitioner Family
DX: Z12.39 Encounter for other screening for malignant neoplasm of breast (principal); Z00.00 Encounter for general adult medical examination without abnormal findings
CPT/HCPCS: 99396

== ENCOUNTER → 2023-05-29 10:45 | Outpatient (BNV) | payer BC, SELFPAY | PROVIDERS: PCP Nurse Practitioner Family; Visit Provider Radiology Diagnostic Radiology | DX: Z12.31 Encounter for screening mammogram for malignant neoplasm of breast (principal) | CPT/HCPCS: 77063; 77067 ==

== ENCOUNTER 2023-05-29 10:48 | Outpatient (REF) | payer BC, SELFPAY ==
--- NOTE | ~2023-05-29 | MM_ITS ---
EXAMINATION: MM SCREENING DIGITAL BREAST TOMOSYNTHESIS, BILATERAL CLINICAL INFORMATION: Screening. Asymptomatic. COMPARISON: Mammography: This is a baseline study. TECHNIQUE: Digital breast tomosynthesis is performed in both the craniocaudal and mediolateral oblique views along with computer-aided detection (CAD). Synthesized 2D images are generated from the tomosynthesis. FINDINGS: The breasts are heterogeneously dense, which may obscure small masses (ACR BI-RADS breast composition Category c). There are no significant masses, abnormal calcifications, or other abnormalities. MM/MM tomosynthesis screening BI IMPRESSION: No mammographic evidence of malignancy. ASSESSMENT: BI-RADS BI-RADS 1 - Negative RECOMMENDATION: Routine annual mammography screening. 1 year F/U This examination should not preclude the clinical evaluation of a suspicious palpable abnormality. This patient's information was entered into a reminder system with a target due date for their next mammogram.
== END 2023-05-29 10:49 | disposition home or self-care (01) ==
LOC: HO.MAMMO 10:48
PROVIDERS: PCP Nurse Practitioner Family; Visit Provider Nurse Practitioner Family
DX: Z12.31 Encounter for screening mammogram for malignant neoplasm of breast (principal)
CPT/HCPCS: 77063; 77067

== ENCOUNTER 2023-07-24 11:27 | Outpatient (REF) | payer BC, SELFPAY ==
[2023-07-24 13:28] LABS: MANUAL DIFF FLAG NO
[2023-07-24 13:33] LABS: Basophils Percent Auto 0.4 % (0-2); Eosinophils Absolute Auto 0.2 X10*3/uL (0.0-0.4); Eosinophils Percent Auto 1.8 % (0-4); Imm Gran Abs Auto 0.03 X10*3/uL (0.00-0.03); Imm Gran Pct Auto 0.3 % (0.0-0.4); Lymphocytes Absolute Auto 2.5 X10*3/uL (1.2-4.9); Mean Corpuscular HGB Conc 30.8 g/dl (31.0-35.0); Mean Corpuscular Hemoglobin 23.3 pg (27.0-33.0); Mean Corpuscular Volume 75.6 fL (80.0-98.0); Mean Platelet Volume 11.2 fL (9.4-12.3); Monocytes Absolute Auto 0.5 X10*3/uL (0.1-1.2); Monocytes Percent Auto 4.2 % (2-11); Neutrophils Absolute Auto 7.7 x10*3/uL (2.0-8.3); Neutrophils Percent Auto 70.3 % (45-73); Platelet Count 264 X10*3/uL (160-400); Red Blood Count 5.16 X10*6/uL (4.20-5.50); Red Cell Distribution Width 15.4 % (11.0-16.0); White Blood Count 10.9 X10*3/uL (4.8-10.8)
[2023-07-24 13:39] LABS: Appearance Urine Clear; Color Urine Yellow; Glucose Urine UA Negative (Negative); Leukocyte Esterase Urine Trace (Negative); Nitrite Urine Negative (Negative); Specific Gravity - Urine 1.015 (1.005-1.025); UMIC TRIGGER UACC YES; Urine Blood Negative (Negative); Urine Ketones Negative (Negative); Urine Protein Negative (Neg-Trace)
[2023-07-24 13:42] LABS: Bacteria Urine None Seen (None Seen); Hyaline Casts Urine 0-2 /LPF (0-2); RBC Urine 0-2 /HPF (0-2); WBC Urine 0-5 /HPF (0-5)
[2023-07-24 14:33] LABS: Alanine Aminotransferase 20 U/L (0-31); Albumin Level 4.2 g/dL (3.5-5.0); Alkaline Phosphatase 65 U/L (39-117); Anion Gap 15 (12-20); Aspartate Amino Transferase 23 U/L (5-31); Bilirubin Total 0.3 mg/dL (0.0-1.0); Blood Urea Nitrogen 15 mg/dL (9-16); Calcium 9.4 mg/dL (8.4-10.2); Carbon Dioxide 19 mmol/L (22-29); Chloride 110 mmol/L (96-108); Cholesterol 208 mg/dL (<200); Estimated Glomerular Filt Rate > 60; Glucose Fasting 94 mg/dL (60-99); HDL Cholesterol 49 mg/dL (>40); LDL Cholesterol Calculated 116 mg/dL (<100); Potassium 4.1 mmol/L (3.3-5.1); Sodium 140 mmol/L (135-145); Total Protein 7.6 g/dL (6.5-8.0); Triglycerides 219 mg/dL (<150)
[2023-07-24 14:49] LABS: TSH reflex Free T4 0.73 uIU/mL (0.32-4.0)
== END 2023-07-24 11:28 | disposition home or self-care (01) ==
LOC: HO.HMGCLDS 11:27
PROVIDERS: PCP Nurse Practitioner Family; Visit Provider Nurse Practitioner Family
DX: F32.A Depression, unspecified (principal); F41.9 Anxiety disorder, unspecified
CPT/HCPCS: 36415; 80053; 80061; 81001; 84443; 85025

== ENCOUNTER 2024-09-14 08:09 | Outpatient (REF) | payer OTHER, SELFPAY ==
--- OUTSIDE RECORDS SUMMARY | 2024-09-14 08:19 | XMS_ITS | Clinical Summary ---
Author Organization [facility] [address] [facility] Address [address] [place] [address] Phone Care Team Providers Care Rag Collector Name Role Phone Michael Pantoja NP Primary Care Provider Social History Tobacco Use Types Packs/Day Years Used Date Smoking Tobacco: Never Assessed Comments Unknown Sex and Gender Information Value Date Recorded Sex Assigned at Not on file Legal Sex Female 8:28 PM EST Gender Identity Not on file Sexual Orientation Not on file Plan of Treatment Health Maintenance Due Date Last Done Comments Breast Cancer Screening 1978 DTaP,Tdap,and Td Vaccines (1 - Tdap) 1997 Hepatitis B Vaccines (1 of 3 - 19+ 3-dose series) 1997 Cervical Cancer Screening: P ap Smear 1999 COVID-19 Vaccine (2023-2 5 season) 2023 Colorectal Cancer Screening: Colonoscopy 04/28/2024 Depression Screening 04/28/2024 HIV Screening 04/28/2024 Hepatitis C Screening 04/28/2024 Social Influencers of Health Screening 04/28/2024 Influenza Vaccine (Season Ended) 2024 HIB Vaccines Aged Out No longer eligi ble based on patient's age to complete this topic HPV Vaccines Aged Out No longer eligi ble based on patient's age to complete this topic Hepatitis A Vaccines Aged Out No long er eligible based on patient's age to complete this topic IPV Vaccines Aged Out No longer eligi ble based on patient's age to complete this topic MMR Vaccines Aged Out No longer eligi ble based on patient's age to complete this topic Meningococcal ACWY Vaccine Aged Out N o longer eligible based on patient's age to complete this topic Meningococcal B Vaccine Aged Out No l onger eligible based on patient's age to complete this topic Pneumococcal Vaccine: Pediat rics (0 to 5 Years) and At-Risk Patients (6 to 64 Years) Aged Out No longer eligible b ased on patient's age to complete this topic RSV Immunization Patients Un derek 20 months Aged Out No longer eligible b ased on patient's age to complete this topic Varicella Vaccines Aged Out No longer eligible based on patient's age to complete this topic Insurance [facility] Care Teams Rag Collector Relationship Specialty Start Date End Date Michael Pantoja NP [address] [place], [place] PCP - General Family Medicine 04/28/24
== END 2024-09-14 08:10 | disposition home or self-care (01) ==
LOC: HO.MAMMO 08:09
PROVIDERS: PCP Nurse Practitioner Family; Visit Provider Nurse Practitioner Family
DX: Z12.31 Encounter for screening mammogram for malignant neoplasm of breast (principal)
CPT/HCPCS: 77063; 77067

== ENCOUNTER → 2024-09-14 08:15 | Outpatient (BNV) | payer OTHER, SELFPAY | PROVIDERS: PCP Nurse Practitioner Family; Visit Provider Internal Medicine | DX: Z12.31 Encounter for screening mammogram for malignant neoplasm of breast (principal) | CPT/HCPCS: 77063; 77067 ==

== ENCOUNTER 2024-09-19 08:54 | Outpatient (REF) | payer OTHER, SELFPAY ==
--- OUTSIDE RECORDS SUMMARY | 2024-09-19 09:15 | XMS_ITS | Clinical Summary ---
Author Organization [facility] [address] [facility] Address [address] [place] [address] Phone Care Team Providers Care Tube Bender Hand Name Role Phone Michael Pantoja NP Primary [...] patient's age to complete this topic Insurance [facility] Care Teams Tube Bender Hand Relationship Specialty Start Date End Date Michael Pantoja NP [address] [place], [place] PCP - General Family Medicine 04/28/24
[2024-09-19 11:14] LABS: Appearance Urine Clear; Glucose Urine UA Negative (Negative); PH 7.5 (5.0-9.0); Specific Gravity - Urine 1.020 (1.005-1.025)
[2024-09-19 11:31] LABS: MANUAL DIFF FLAG NO
[2024-09-19 11:38] LABS: Hematocrit 35.8 % (37.0-47.0); Hemoglobin 10.7 g/dl (12.0-16.0); Imm Gran Abs Auto 0.04 X10*3/uL (0.00-0.03); Imm Gran Pct Auto 0.4 % (0.0-0.4); Lymphocytes Absolute Auto 2.1 X10*3/uL (1.2-4.9); Mean Corpuscular HGB Conc 29.9 g/dl (31.0-35.0); Mean Corpuscular Hemoglobin 21.6 pg (27.0-33.0); Mean Corpuscular Volume 72.2 fL (80.0-98.0); NRBC Abs Auto 0.000 X10*3/uL (0.0-0.012); NRBC Pct Auto 0.0 /100WBC (0.0-0.2); Platelet Count 239 X10*3/uL (160-400); Red Blood Count 4.96 X10*6/uL (4.20-5.50); White Blood Count 9.5 X10*3/uL (4.8-10.8)
[2024-09-19 12:04] LABS: Alanine Aminotransferase 22 U/L (0-31); Albumin Level 4.3 g/dL (3.5-5.0); Alkaline Phosphatase 63 U/L (39-117); Anion Gap 12 (12-20); Aspartate Amino Transferase 29 U/L (5-31); Blood Urea Nitrogen 13 mg/dL (9-16); Calcium 9.0 mg/dL (8.4-10.2); Carbon Dioxide 23 mmol/L (22-29); Chloride 109 mmol/L (96-108); Cholesterol 230 mg/dL (<200); Estimated Glomerular Filt Rate 60; HDL Cholesterol 43 mg/dL (>40); Potassium 4.1 mmol/L (3.3-5.1); Sodium 140 mmol/L (135-145); Total Protein 7.0 g/dL (6.5-8.0); Triglycerides 242 mg/dL (<150)
== END 2024-09-19 08:55 | disposition home or self-care (01) ==
LOC: HO.WFDLDS 08:54
PROVIDERS: Visit Provider Nurse Practitioner Family
DX: Z00.00 Encounter for general adult medical examination without abnormal findings (principal); E78.5 Hyperlipidemia, unspecified; E55.9 Vitamin D deficiency, unspecified
CPT/HCPCS: 36415; 80053; 80061; 81003; 82306; 84443; 85025

== ENCOUNTER 2024-09-21 15:50 | Outpatient (AMB) | payer OTHER, SELFPAY ==
--- OUTSIDE RECORDS SUMMARY | 2024-09-21 15:52 | XMS_ITS | Clinical Summary ---
Author Organization [facility] [address] [facility] Address [address] [place] [address] Phone Care Team Providers Care Instantizer Operator Name Role Phone Michael Pantoja NP Primary [...] patient's age to complete this topic Insurance [facility] Care Teams Instantizer Operator Relationship Specialty Start Date End Date Michael Pantoja NP [address] [place], [place] PCP - General Family Medicine 04/28/24
[2024-09-21 15:54] VITALS: BP 136/84; PULSE 82; O2SAT 97; BMI 35.2
--- NOTE | 2024-09-21 15:54 | A.OFFPC_ITS ---
Vital Signs 09/21/24 15:54 Height 5 ft 4 in Weight 205 lb BMI 35.2 BP 136/84 Blood Pressure Location Lt brachial Position Sitting Pulse 82 Pulse Source Pulse Oximeter Pulse Oximetry (%) 97 Oxygen Delivery Method Room Air Intake Visit Reasons: PE Metal Drawer Required: No Accompanied by: Self / Same As Patient Allergies shellfish derived Allergy (Verified 09/21/24 17:18) Facial Swelling Medication List - Last Reconciled 09/21/24 by JAYASHREE McphersonP- albuterol sulfate 90 mcg/actuation (ProAir HFA) inhalation ascorbate calcium (vitamin C) 500 mg PO DAILY cetirizine 10 mg PO DAILY PRN 90 days cholecalciferol (vitamin D3) 50 mcg PO DAILY PRN cranberry 1,000 mg PO DAILY echinacea 500 mg PO DAILY lactobacillus combo no.11 (Probiotic) 1 cap PO DAILY lorazepam 0.5 mg PO DAILY PRN 30 days multivitamin 1 tab PO DAILY oregano oil mg PO rizatriptan 10 mg PO DAILY PRN sertraline 150 mg (1.5 x 100 mg) PO DAILY 90 days topiramate 50 mg PO BID valacyclovir 500 mg PO DAILY Tobacco use date assessed: 09/21/24 Dental Screening Dental Screen Date: 09/21/24 Did you have a dental visit in the last 12 months?: Yes Did you have a dental problem in the last 6 months where you did not have access to dental care?: No Was dental information given to patient?: Patient has dentist HPI PE HPI Details History of Present Illness The patient is a 44-year-old female presenting for a physical examination. She reports experiencing heavy menstrual bleeding with large clots for most of her life, which has contributed to anemia. She recently started taking iron supplements at a dose of 325 mg once daily to address the anemia and is aware of the potential side effects. The patient denies experiencing any chest pain, dyspnea, fever, chills, abdominal pain, hematochezia, constipation, diarrhea, or any psychiatric symptoms such as suicidal or homicidal ideation. She is not interested in seeing a therapist or psychiatrist and reports doing well overall. She is due for a repeat colon cancer screening and has been referred back to her provider in [place] for this purpose. Her recent mammogram has been completed but not yet fully reviewed. The physical examination revealed obesity, but was otherwise unremarkable. dyslipidemia: starting rosuvastatin, continue citrus Berg[place] Health Maintenance - Colon cancer screening: Referral to [facility] in [place] - Mammogram: Completed, awaiting full re view Social History Review of Systems - Cardiovascular: Denies chest pain - Respiratory: Denies dyspnea - Gastrointestinal: Denies abdominal vera n, hematochezia, constipation, diarrhea - Psychiatric: Denies suicidal ideation, homicidal ideation Physical Exam General: Cooperative, healthy appearing, comfortable, no acute distress and well developed, obese Orientation: Patient oriented x3 Limitations: No limitations Head: Normal to inspection Ears: Hearing grossly normal bilaterally Nose: Normal external nose present Face and sinus: Normal facial exam Eyes: Appearance normal, both eyes and all related structures Neck: Normal visual inspection and Yes full ROM Respiratory: Normal respiratory effort and able to speak in complete sentences. Clear to auscultation bilaterally Cardiovascular: Regular rate and rhythm. Normal S1 and S2 GI: Normal to inspection. Soft to palpation and nontender Skin: No rashes or lesions noted Neuro: Patient oriented x3 Extremities: Normal to inspection Results Plan The patient has been advised to continue with the iron supplementation to manage her anemia, with awareness of potential side effects. She is referred back to her provider in [place] for a repeat colon cancer screening. The mammogram results are pending full review, and follow-up will be based on the findings. Discussion Notes Patient Instructions - Continue taking iron supplements as pr escribed. - Follow up with your provider in [facility] for colon cancer screening. - Await full review of mammogram results and follow up as needed. -repeat labs in 2 months [facility] Medical History (Updated 09/21/24 @ 17:18 by SHERRI Mcpherson) Vitamin D deficiency Dyslipidemia Family hx of colon cancer Idiopathic intracranial hypertension Surgical History S/P tonsillectomy Hx of colonoscopy Family History Maternal Grandfather Substance use disorder Maternal Grandmother Substance use disorder Social History Housing: House Patient Tobacco Use Status: Former Tobacco user e-Cigarette/Vaping Use: Never Used service: No Current occupational status: employed Current occupation: [employer] Cognitive needs: No Hearing needs: No Vision needs: No Questionnaire PHQ-9 Over the last 2 weeks, how often have you been bothered by any of the following problems? 1. Little interest or pleasure in doing things: more than half the days 2. Feeling down, depressed, or hopeless: several days 3. Trouble falling or staying asleep, or sleeping too much: more than half the days 4. Feeling tired or having little energy: nearly every day 5. Poor appetite or overeating: several days 6. Feeling bad about yourself - or that you are a failure or have let yourself or your family down: more than half the days 7. Trouble concentrating on things, such as reading the newspaper or watching television: more than half the days 8. Moving or speaking so slowly that other people could have noticed. Or the opposite - being so fidgety or restless that you have been moving around a lot more than usual: not at all 9. Thoughts that you would be better off or of hurting yourself in some way: several days Total score: 14 Depression Screening Interpretation: Positive Depression Screening Done: Yes 79223 - PHQ-9 Billing: Yes Source: Developed by Drs. Grayson Knutson, Angela Hernandez, Mike Boateng and colleagues, with an educational jhoana from [employer]. Thrive Questionnaire Date Thrive assessed: 09/21/24 I am a: Patient What is your living situation today?: I have a steady place to live Within the past 12 months, did the food you bought not last and you didn't have the money to get more?: Never true Within the past 12 months, did you worry whether your food would run out before you got money to buy more?: Never true Do you have trouble paying for medicines?: No Do you have trouble getting transportation to medical appointments?: No Do you have trouble paying your heating and electricity bill?: I choose not to answer this question Do you have trouble taking care of your child, family member or friend?: No Do you have trouble with day-to-day activities such as bathing, preparing meals, shopping, managing finances, etc.?: No Are you currently unemployed and looking for a job?: No Are you interested in more education?: No THRIVE Score: 0 AUDIT C Alcohol Use Questionnaire (AUDIT-C) 1. How often do you have a drink containing alcohol?: Monthly or less 2. How many drinks containing alcohol do you have on a typical day when you are drinking?: 1 or 2 3. How often do you have six or more drinks on one occasion?: Never Total Score: 1 Score Reviewed/Action Taken: Yes HARRY-7 AMB Questionnaire HARRY-7 Date HARRY - 7 assessed: 09/21/24 Feeling nervous, anxious, or on edge: 2 = More than half the days Not being able to stop or control worryin = Nearly every day Worrying too much about different things: 2 = More than half the days Trouble relaxin = More than half the days Being so restless that it is hard to sit still: 1 = Several days Becoming easily annoyed or irritable: 2 = More than half the days Feeling afraid as if something awful might happen: 1 = Several days Total HARRY-7 score (0-4 normal; 5-9 mild; 10-14 moderate; 15-21 severe): 13 Source: Developed by Drs. Grayson Knutson, Angela Hernandez, Mike Boateng and colleagues, with an educational jhoana from [employer]. HARRY-7 Assessment Billing HARRY-7 Assessment Tool: HARRY-7 Assessment 57525 Physical exam (Primary Care) Vital Signs: Last Vital Signs Pulse 82 09/21/24 15:54 BP 136/84 09/21/24 15:54 Pulse Ox 97 09/21/24 15:54 Oxygen Delivery Method Room Air 09/21/24 15:54 BMI result Body Mass Index 35.2 Tobacco/Smoking Status: Tobacco use Status Tobacco use date assessed 09/21/24 09/21/24 15:57 Patient Tobacco Use Status Former Tobacco user 09/21/24 15:57 e-Cigarette/Vaping Use Never Used 09/21/24 15:57 Depression Screening Interpretation: Positive Thrive Assessment: Date of Thrive Assessment Date Thrive assessed 09/21/24 09/21/24 15:57 Coding Level of Care Code Est Pt Level 3 (03040) Est Pt Prev Care 40-64y(55153) Diagnoses Family hx of colon cancer Z80.0 Screening for colon cancer Z12.11 Screening for cervical cancer Z12.4 Physical exam Z00.00 Vitamin D deficiency E55.9 Anemia D64.9 Dyslipidemia E78.5 Additional Codes HARRY-7 Assessment Billing - HARRY-7 Assessment Tool: HARRY-7 Assessment 41779 ([id number]) PHQ-9 - 30770 - PHQ-9 Billing: Yes ([id number]) Assessment & Plan Assessment & Plan (1) Family hx of colon cancer: Code(s): Z80.0 - Family history of malignant neoplasm of digestive organs Category: Medical (2) Screening for colon cancer: Code(s): Z12.11 - Encounter for screening for malignant neoplasm of colon Category: Medical (3) Screening for cervical cancer: Code(s): Z12.4 - Encounter for screening for malignant neoplasm of cervix Category: Medical (4) Physical exam: Code(s): Z00.00 - Encounter for general adult medical examination without abnormal findings Category: Medical (5) Vitamin D deficiency: Code(s): E55.9 - Vitamin D deficiency, unspecified Category: Medical (6) Anemia: Code(s): D64.9 - Anemia, unspecified Category: Medical (7) Dyslipidemia: Code(s): E78.5 - Hyperlipidemia, unspecified Category: Medical Plan . Orders: Orders Complete Blood Count Auto Diff 09/19/24 Z00.00 - Encounter for general adult medical examination without abnormal findings Comprehensive [place]. Panel Fast 09/19/24 Z00. - Encounter for general adult medical examination without abnormal findings TSH reflex Free T4 09/19/24 Z00.00 - Encounter for general adult medical examination without abnormal findings Lipid Panel 09/19/24 Z00.00 - Encounter for general adult medical examination without abnormal findings UA CC w/rflx Micro + Cult 09/19/24 Z00.00 - Encounter for general adult medical examination without abnormal findings Vitamin D 25-OH Total 09/19/24 E55.9 - Vitamin D deficiency, unspecified Vitamin D 25-OH Total Today E55.9 - Vitamin D deficiency, unspecified Referrals Gastroenterology Referral Z12.11 - Encounter for screening for malignant neoplasm of colon, Z80.0 - Family history of malignant neoplasm of digestive organs [employer] Referral Z12.4 - Encounter for screening for malignant neoplasm of cervix Medications: New rosuvastatin 10 mg PO DAILY 90 tabs 2RF
== END 2024-09-21 16:51 | disposition home or self-care (01) ==
LOC: HO.HMCC 15:51
PROVIDERS: PCP Nurse Practitioner Family; Visit Provider Nurse Practitioner Family
DX: Z00.00 Encounter for general adult medical examination without abnormal findings (principal); E55.9 Vitamin D deficiency, unspecified; Z80.0 Family history of malignant neoplasm of digestive organs; Z12.11 Encounter for screening for malignant neoplasm of colon; D64.9 Anemia, unspecified; E78.5 Hyperlipidemia, unspecified

== ENCOUNTER → 2024-09-21 15:50 | Outpatient (BNVA) | payer OTHER, SELFPAY | PROVIDERS: PCP Nurse Practitioner Family; Visit Provider Nurse Practitioner Family | DX: Z00.00 Encounter for general adult medical examination without abnormal findings (principal); E55.9 Vitamin D deficiency, unspecified; N92.0 Excessive and frequent menstruation with regular cycle; D64.9 Anemia, unspecified; E78.5 Hyperlipidemia, unspecified; Z80.0 Family history of malignant neoplasm of digestive organs | CPT/HCPCS: 96127 ==

== ENCOUNTER 2024-11-09 14:42 | Outpatient (AMB) | payer OTHER, SELFPAY ==
--- OUTSIDE RECORDS SUMMARY | 2024-11-09 14:45 | XMS_ITS | Clinical Summary ---
Author Organization [facility] [address] [facility] Address [address] [place] [address] Phone Care Team Providers Care Cobol Application Developer Name Role Phone JorjeMichael warren Mazin RANDALL Primary Care Provider [phone] Allergies Active Allergy Reactions Criticality Noted Date Comments Shellfish Derived 09/28/2024 Medications albuterol HFA (PROAIR HFA ; PROVENTIL HFA ; VENTOLIN HFA) 90 mcg/actuation inhaler Inhale 2 puffs by mouth every 6 (six) hours if needed for wheezing. Active ascorbate calcium, vitamin C, 500 mg tablet Take by mouth. Active cetirizine (ZyrTEC) 10 mg tablet Take 1 tablet (10 mg total) by mouth 1 (one) time each day. Active CHOLECALCIFEROL, VITAMIN D3, ORAL Take by mouth. Active echinacea 500 mg capsule Take by mouth. Active lactobacillus combination no.4 (Probiotic) 3 billion cell capsule Take by mouth. Active LORazepam (ATIVAN) 0.5 mg tablet Take 1 tablet (0.5 mg total) by mouth every 6 (six) hours if needed for anxiety. Max Daily Amount: 2 mg Active multivit-min/aminah ольга fumarate (MULTI VITAMIN ORAL) Take by mouth. Active OREGANO OIL ORAL Take by mouth. Active rizatriptan (MAXALT) 10 mg tablet Take 1 tablet (10 mg total) by mouth 1 (one) time if needed for migraine. May repeat in 2 hours if unresolved. Do not exceed 30 mg in 24 hours. Active sertraline (ZOLOFT) 100 mg tablet Take 1.5 tablets (150 mg total) by mouth 1 (one) time each day. Active topiramate (TOPAMAX) 50 mg tablet Take 1 tablet (50 mg total) by mouth 2 (two) times a day. Active Encounters Date Type Department Care Team Description 09/28/2024 Telephone Gastroenterology - [address] [facility] [address] [facility] [address] [place] [id number] Irene Forte MD from Last 3 Months Social History Tobacco Use Types Packs/Day Years Used Date Smoking Tobacco: Never Assessed Comments Unknown Sex and Gender Information Value Date Recorded Sex Assigned at Not on file Legal Sex Female 8:28 PM EST Gender Identity Not on file Sexual Orientation Not on file Plan of Treatment Upcoming Encounters Date Type Department Care Team (Late st Contact Info) Description 12/21/2024 1:00 PM EDT Appointment [facility] [address] [place] [address] Sebastian Russo MD [address] [id number] Health Maintenance Due Date Last Done Comments Breast Cancer Screening 1978 DTaP,Tdap,and Td Vaccines (1 - Tdap) 1997 Hepatitis B Vaccines (1 of 3 - 19+ 3-dose series) 1997 Cervical Cancer Screening: P ap Smear 1999 COVID-19 Vaccine (2023-2 5 season) 2023 Depression Screening 03/22/2024 HIV Screening 04/28/2024 Hepatitis C Screening 04/28/2024 Social Influencers of Health Screening 04/28/2024 Influenza Vaccine (#1) 2024 Colorectal Cancer Screening: Colonoscopy 10/05/2034 10/05/2024 HIB Vaccines Aged Out No longer eligi [...] 5 Years) and At-Risk Patients (6 to 49 Years) Aged Out No longer eligi ble based on patient's age to complete this topic RSV Immunization Patients Un derek 20 months Aged Out No longer eligible b ased on patient's age to complete this topic Varicella Vaccines Aged Out No longer eligible based on patient's age to complete this topic Procedures Procedure Name Priority Date/Time Associated Diagnosis Comments TISSUE EXAM Routine 10/05/2024 10:11 AM EDT HP LINK COLONOSCOPY Routine 10/05/2024 10:10 AM EDT from Last 3 Months Results * Tissue exam (10/05/2024 10:11 AM EDT) Tissue Historical Provider LAB PATHOLOGY ORDERABLES Final Result * Colonoscopy (10/05/2024 10:10 AM EDT) Historical Provider HEALTH MAINTENANCE Final Result from Last 3 Months Insurance [facility] Care Teams Cobol Application Developer Relationship Specialty Start Date End Date Michael Pantoja NP [address], [place] PCP - General Family Medicine 04/28/24
--- NOTE | 2024-11-09 14:47 | A.OFFVIS_ITS ---
Intake Visit Reasons: 6m HTN Allergies shellfish derived Allergy (Verified 11/09/24 14:51) Facial Swelling Medication List - Last Reconciled 11/09/24 by Joi Ahmadi CNP albuterol sulfate 90 mcg/actuation (ProAir HFA) inhalation ascorbate calcium (vitamin C) 500 mg PO DAILY cetirizine 10 mg PO DAILY PRN 90 days cholecalciferol (vitamin D3) 50 mcg PO DAILY PRN cranberry 1,000 mg PO DAILY echinacea 500 mg PO DAILY lactobacillus combo no.11 (Probiotic) 1 cap PO DAILY lorazepam 0.5 mg PO DAILY PRN 30 days multivitamin 1 tab PO DAILY oregano oil mg PO rizatriptan 10 mg PO DAILY PRN rosuvastatin 10 mg PO DAILY sertraline 150 mg (1.5 x 100 mg) PO DAILY 90 days topiramate 50 mg PO BID valacyclovir 500 mg PO DAILY HPI Comments Details: 44-year-old woman with mild idiopathic HTN (CSF OP 26 in 2021) and migraine without aura. She was doing okay. She was getting about 2-3 migraines/month with photophobia, sonophobia, and nausea. Rizatriptan as needed helped some. She was also sometimes using Excedrin Migraine. 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 Sleep was not so good. [facility] Medical History (Updated 11/09/24 @ 14:50 by Joi Ahmadi CNP) Depression with anxiety Obesity Migraine Vitamin D deficiency Dyslipidemia Family hx of colon cancer Idiopathic intracranial hypertension Surgical History S/P tonsillectomy Hx of colonoscopy Family History Maternal Grandfather Substance use disorder Maternal Grandmother Substance use disorder Social History Housing: House Patient Tobacco Use Status: Former Tobacco user e-Cigarette/Vaping Use: Never Used service: No Current occupational status: employed Current occupation: [employer] [place] Cognitive needs: No Hearing needs: No Vision needs: No Review of Systems Const Denies chills, Denies daytime sleepiness, Denies difficulty sleeping, Denies fatigue, Denies fever(s), Denies frequent falls, Reports headache(s), Denies increased appetite, Denies poor appetite, Denies snoring, Denies weakness, Denies weight gain and Denies weight loss Eyes Denies loss of vision ENT Denies vertigo, Denies dizziness and Reports headache(s) Card Denies chest pain at rest, Denies chest pain with activity, Denies syncope, D enies leg edema and Denies palpitations Resp Denies snoring GI Denies constipation, Denies heartburn, Denies diarrhea and Denies nausea Denies urinary frequency, Denies urinary incontinence and Denies urinary urgency Musc Denies abnormal gait, Denies numbness and Denies tingling Skin/Breast Denies dry skin and Denies rash Neuro Denies abnormal gait, Denies vertigo, Denies dizziness, Denies syncope, Denies frequent falls, Reports headache(s), Denies lack of coordination, Denies loss of vision, Denies memory loss, Denies numbness, Denies restless legs, Denies seizure-like activity, Denies tingling, Denies paresthesias, Denies tremor(s) and Denies weakness Psych Denies anxiety, Denies depression, Denies auditory hallucinations, Denies memory loss, Denies visual hallucinations and Denies suicidal ideation Endo Denies fatigue and Denies palpitations Physical Exam Const Other: General Appearance:? normal, in no acute distress. Skin:? no rashes, no significant birthmarks. Heart:? S1, S2 normal, no murmurs. Lungs:? clear anteriorly and posteriorly. Extremities:? no edema. Psych:? alert, oriented, cognitive function intact, cooperative with exam. Neuro Other: Mental Status:?Normal attention, orientation, memory and affect.? Cranial Nerves:?Pupils are equal, round and reactive to light. External occular muscles are intact. Visual linares are full. Face is symmetrical. Facial sensations are normal. Tongue is midline. Palate elevates symmetrically. Shoulder shrugging is normal. Hearing to bedside conversation is normal. Sensory Exam:?....? Coordination:?No ataxia,?no titubation.? Gait Exam: Within normal limits. Extrapyramidal System:?No tremor, rigidity with normal facial expressions.? Pronator Drift:?Not present.? Involuntary Movements:?No tremors seen.? Speech:?Normal.? Results Reviewed Results Reviewed: MRI brain WWO at [facility] [place] in Jun 2021: minimal MVD LP at [facility] [place] in July 2021: OP 26cm, WBCs 2, RBCs 126, Glu 66, Pro 53.4 LP at [facility] [place] in 2006: OP , WBCs 1, RBCs 0, Glu 57, Pro 51 Assessment & Plan Assessment & Plan (1) Idiopathic intracranial hypertension: Code(s): G93.2 - Benign intracranial hypertension Category: Medical Plan: Continue topiramate 50mg 1 tablet twice a day. (2) Migraine: Code(s): G43.909 - Migraine, unspecified, not intractable, without status migrainosus Category: Medical Qualifiers: Migraine type: unspecified Status migrainosus presence: without status migrainosus Intractability: not intractable Qualified Code(s): G43.909 - Migraine, unspecified, not intractable, without status migrainosus Plan: Continue rizatriptan 10mg 1 tablet as needed for migraine. May take with 1 Aleve or Excedrin and cup of coffee or tea. Start ondansetron 4mg 1 tablet as needed for nausea. She needed [place] paperwork completed and would drop off paperwork to office. Will complete once received. Plan Meds tried: sumatriptan Medications: New ondansetron 4 mg PO DAILY PRN 10 tabs 5RF nausea and vomiting 30 days Changed From topiramate 50 mg PO BID To topiramate 50 mg PO BID 180 tabs 1RF 90 days From rizatriptan 10 mg PO DAILY PRN To rizatriptan 10 mg PO DAILY PRN 10 tabs 5RF migraine headache 30 days Coding Level of Care Code Est Pt Level 4 (49069) Diagnoses Idiopathic intracranial hypertension G93.2 Migraine without status migrainosus, not intractable, unspecified migraine type G43.909 Migraine type: unspecified Status migrainosus presence: without status migrainosus Intractability: not intractable
== END 2024-11-09 15:03 | disposition home or self-care (01) ==
LOC: HO.HSM 14:43
PROVIDERS: PCP Nurse Practitioner Family; Referring Provider Internal Medicine; Visit Provider Registered Nurse
DX: G93.2 Benign intracranial hypertension (principal); G43.909 Migraine, unspecified, not intractable, without status migrainosus
CPT/HCPCS: 99214